=== PATIENT | female | born 1985 | race Caucasian/White ===

== ENCOUNTER 2018-03-05 06:00 | Inpatient (IN) | payer MEDICAID ==
--- NOTE | 2018-03-04 15:27 | GHP ---
[f rep st] PREOP HISTORY AND PHYSICAL DATE OF ADMISSION: 03/05/2018 ADMISSION DIAGNOSIS: Intrauterine at 37 weeks' gestation with intrauterine growth restrict ion and oligohydramnios. INDICATION: Patient is a 32-year-old, 2, para 1-0-0-1, who will be 37 weeks' gestation. Her estimated date of confinement is 03/26/2018, dated by a last menstrual period of 06/20/2017, consist ent with a first trimester ultrasound. Patient has initiated care at [facility] the first trimester. She had a growth ultrasound at 36 weeks for size less than 36 weeks. Estimate d weight at that time was 8th percentile with an amniotic fluid index of 7.1, and elevated SD r atio of Dopplers of greater than 98th percentile. Patient's anatomy ultrasound, the estimated weight had been 75th percentile with obviously normal amniotic fluid. The patient presented for a no nstress test today, which was reactive, with positive accelerations. However, there was a small vari able deceleration, so a bedside ultrasound was performed by sd, which showed an amniotic fluid index of 5. Management options were reviewed with the patient, but because of the oligohydramnios, intraut erine growth restriction and elevated Dopplers, recommendation was made for induction of labor. A Fo jake bulb was placed in the evening of 03/04, and patient will be brought in on the morning of 03/05 f or induction of labor with Pitocin. MEDICAL HISTORY: Significant for factor V Leiden heterozygous. The patient does not have any person al history of clotting issues. The patient also has a history of pyelonephritis. MEDICATIONS: vitamins and baby aspirin. SURGICAL HISTORY: [place] teeth. ALLERGIES: No known drug allergies. SOCIAL HISTORY: Patient is . 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 She denies tobacco, alcohol, or drug u se. FAMILY MEDICAL HISTORY: Significant for a family member with factor V Leiden. 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 Periods every 28 days, lasting 2 days. She is a 2, para 1-0-0-1. First , she had a spontaneous vaginal delivery in 05/2015 of a 7-pound 11-ounce fe male infant at 39-5/7 weeks. She was induced for mild preeclampsia. Delivery was complicated by ret ained placenta, requiring manual extraction of the placenta. Nuchal cord x2 noted with meconium-stai jose fluid. 's were 1, 5 and 9. Current has been uncomplicated until the 36-week diag nosis of intrauterine growth restriction. The patient denies any history of any abnormal Pap smears or sexually transmitted diseases. REVIEW OF SYSTEMS: Ten-point review of systems is negative. She has positive movement. Denie s any headache or changes in vision, nausea, vomiting, fevers, or chills. She denies any loss of flu id or vaginal bleeding. She states there is good movement. She denies any contractions. PHYSICAL EXAMINATION: VITAL SIGNS: Stable. GENERAL APPEARANCE: Alert and oriented x3. NECK: Mob ile and supple. HEART: Rate is regular/regular. LUNGS: Clear to auscultation bilaterally. ABDOME N: Gravid, nondistended, nontender. EXTREMITIES: Reveal no calf tenderness or edema. PELVIC: Cer vical exam, she is 1 cm dilated, 50% effaced, and -2 station. is in the vertex presentation. heart tracing was category 1. PSYCH: Appropriate affect. NEUROMUSCULAR: Grossly intact. LABS: Patient's blood type is O positive. Antibody screen negative. Rubella immune. GBS positive. HBsAg negative. Fifty gram glucose was 134. Patient denied genetic testing. ASSESSMENT AND PLAN: A 32-year-old, 2, para 1-0-0-1, who will be 37 weeks' gestation with ol igohydramnios, intrauterine growth restriction, and elevated Dopplers. Patient has a Thapa placed an d will be started on Pitocin in the morning. /[id number]/MODL
[2018-03-05] MEDS ORDERED: AMMONIA AROMATIC 1 EACH AMP IH ONE (08:13)
[2018-03-05] MEDS ORDERED: OLIVE OIL 118 ML BTL ONE (08:13)
[2018-03-05] MEDS ORDERED: LIDOCAINE 1% 300 MG/30 ML SDV ONE (08:13)
[2018-03-05] MEDS ORDERED: TERBUTALINE SULFATE 1 MG/ML VIAL ONE (08:13)
[2018-03-05] MEDS ORDERED: OXYTOCIN 10 UNIT/ML VIAL ONE (08:15)
[2018-03-05] MEDS ORDERED: MISOPROSTOL 200 MCG TAB ONE (08:15)
[2018-03-05] MEDS ORDERED: AMPICILLIN SODIUM 2 GM in NS 100 ML IV ONE (09:24)
[2018-03-05] MEDS ORDERED: LR 500 ML IV PRN (09:32)
[2018-03-05] MEDS ORDERED: IBUPROFEN 600 MG TAB PO PRN (09:33)
[2018-03-05] MEDS ORDERED: OXYTOCIN/RINGERS LACTATE 1,000 ML IV PRN (09:33)
[2018-03-05] MEDS ORDERED: MISOPROSTOL 200 MCG TAB PR PRN (09:33)
[2018-03-05] MEDS ORDERED: EPSOM SALT 454 GM TP PRN (09:33)
[2018-03-05] MEDS ORDERED: LR 1,000 ML IV PRN (09:33)
[2018-03-05] MEDS ORDERED: LIDOCAINE 1% 300 MG/30 ML SDV SC PRN (09:33)
[2018-03-05] MEDS ORDERED: TERBUTALINE SULFATE 1 MG/ML VIAL IV PRN (09:33)
[2018-03-05] MEDS ORDERED: OLIVE OIL 118 ML BTL MISC PRN (09:33)
[2018-03-05] MEDS ORDERED: OXYTOCIN/RINGERS LACTATE 500 ML IV SCH (10:00)
[2018-03-05] MEDS ORDERED: OXYTOCIN 30 UNIT in LR 500 ML IV SCH (10:30)
[2018-03-05 11:00] LABS: PLATELET COUNT 184 10^3/uL (150-400)
--- NOTE | 2018-03-05 14:04 | OBPROG ---
Labor Progress Note Assessment/Plan: Assessment: Plan: Subjective/Intrapartum Course: 03/05/18 13:59 patient starting to feel very mild contractions. AROM - scant amount of clear fluid. status reassuring. will continue close observation. pitocin is at 10. 03/05/18 14:01 Objective: 03/05/18 07:30 Patient ABO/Rh O POSITIVE 03/05/18 07:30 - SVE Dilation (cm): 3 Effacement (%): 50 Station: -2 Membranes: SROM Amniotic Fluid Color: Clear - Contraction Pattern Assessment Current Contraction Pattern: Regular - FHR Assessment Arriaza FHR Pattern Variability: Moderate FHR Category: 1 - Procedures Non-surgical Procedures: Amniotomy - AP Antepartum Course: 03/05/18 14:01 initiated care at [facility] in first trimester. efw at 2o weeks was 75%. size less than dates at 36 weeks. EFW 8% with s/d ratio of umbilical artery 90% . marylu 7. started two times a week nst. nst yesterday had small variable. marylu 5. discussed management options. odonnell bulb placed. brought in for induction of labor. Oxytocin Orders Assessment - Pre-Induction/Augmentation Assessment Gestational Age: 37 week(s) and 0 day(s) ICD10 Worksheet Patient Problems: Problems Problem Status Onset Preeclampsia Acute Retained placenta Acute (spontaneous vaginal delivery) Acute
[2018-03-05] MEDS: AMPICILLIN SODIUM 1 GM in NS 100 ML IV SCH ×2 (15:00→19:00)
[2018-03-05] MEDS ORDERED: ACETAMINOPHEN 500 MG TAB PO PRN (15:33)
[2018-03-05] MEDS ORDERED: NALOXONE HCL 0.4 MG/ML INJ IVP PRN (16:48)
[2018-03-05] MEDS ORDERED: PHENYLEPHRINE HCL 100 MCG/ML SYR IVP PRN (16:48)
[2018-03-05] MEDS ORDERED: ONDANSETRON 4 MG/2 ML VIAL IVP PRN (16:48)
[2018-03-05] MEDS ORDERED: fentaNYL 100 MCG/2 ML INJ ONE (16:57)
[2018-03-05] MEDS ORDERED: BUPIVACAINE 0.25% 30 ML SDV ONE (16:57)
[2018-03-05] MEDS ORDERED: fentaNYL 2MCG/ML/BUP 0.1% RTU 100 ML EP SCH (17:00)
[2018-03-05] MEDS ORDERED: fentaNYL 200 MCG, BUPIVACAINE 0.5% 20 ML in NS 100 ML EP SCH (17:00)
[2018-03-05] MEDS ORDERED: LR 500 ML IV SCH (17:00)
--- NOTE | 2018-03-05 17:44 | PREANESOB ---
Obstetric Pre-Anesthesia Info - General Info Proposed Procedure: labor : 2 Para: 1 RAJIV: 03/26/18 Gestational Age: 37 week(s) and 0 day(s) - Info Status: Full Term Monitors: External FHR Pattern: Reassuring - Labor Status Cervical Dilation per last OB SVE: 3 Station per last OB SVE: -2 Amniotic Fluid Color: Clear Pitocin: In Use PIH: No Magnesium Sulfate in Use: No Indications for Labor Analgesia: Augmentation of Labor Labor Epidural: Proposed Anesthesia ROS: had previous labor epidural without problems, no other surgical history, negative fam hx of anes problems, nkda, meds: PNV and baby ASA, neg ROS except for Factor V leiden, uneventful , see other software for vital signs Allergies/Adverse Reactions: Allergy/AdvReac Type Severity Reaction Status Date / Time No Allergies [NKDA] Allergy Mild Verified 03/05/18 07:22 wheat Allergy Verified 03/05/18 07:22 Home Medications: Medication Instructions Recorded Vit27&Calcium/Iron/FA 1 each PO DAILY 06/24/15 [ Rx 1 Tablet (RX)] Visit Medications: Generic Name Dose Route Start Last Admin Trade Name Freq PRN Reason Stop Dose Admin Acetaminophen 1,000 mg 03/05/18 15:33 03/05/18 15:50 Tylenol PO 09/01/18 15:32 1,000 mg Q6HRS PRN Administration Pain, Mild/Fever, Can Take PO Diphenhydramine HCl 25 - 50 mg 03/05/18 16:48 Benadryl Injection IVP 09/01/18 16:47 Q6HRS PRN Itching Ephedrine Sulfate 10 mg 03/05/18 16:48 Ephedrine Sulfate IV 09/01/18 16:47 .Q2M PRN Hypotension Ampicillin Sodium 1 gm/ Sodium 100 mls @ 200 mls/hr 03/05/18 13:30 03/05/18 15:00 Chloride IV 04/04/18 13:29 100 mls Q4H CHEVY Administration Protocol Lactated Ringer's 500 mls @ 500 mls/hr 03/05/18 09:32 Lr IV 03/06/18 09:32 PRN PRN Maternal Hypotension Lactated Ringer's 1,000 mls @ 0 mls/hr 03/05/18 09:33 03/05/18 10:30 Lr IV 03/06/18 09:32 1,000 mls PRN PRN Administration SEE PROTOCOL CONDITIONS Protocol Per Protocol Oxytocin/Lactated Ringer's 1,000 mls @ 125 mls/hr 03/05/18 09:33 Pitocin 20 Units/Lr (Premix) IV PRN PRN Post bleeding Oxytocin 30 unit/ Lactated 503 mls @ 0 mls/hr 03/05/18 10:30 03/05/18 10:30 Ringer's IV 09/01/18 09:59 503 mls CONT CHEVY Administration Protocol Per Protocol Lactated Ringer's 500 mls @ 0 mls/hr 03/05/18 17:00 Lr IV 09/01/18 16:59 CONT CHEVY As Directed Fentanyl 200 mcg/ Bupivacaine 100 mls @ 0 mls/hr 03/05/18 17:00 HCl 20 ml/ Sodium Chloride EP 03/15/18 16:59 CONT CHEVY Protocol As Directed Ibuprofen 600 mg 03/05/18 09:33 Motrin PO ONCE PRN post , pain Lidocaine HCl 300 mg 03/05/18 09:33 Lidocaine Hcl 1% SC 09/01/18 09:32 ONCE PRN episiotomy Magnesium Sulfate 454 gm 03/05/18 09:33 Epsom Salt TP 09/01/18 09:32 Q1H PRN perineal discomfort Misoprostol 800 - 1,000 mcg 03/05/18 09:33 Cytotec OH ONCE PRN Vaginal Atony/Bleeding Naloxone HCl 0.4 mg 03/05/18 16:48 Narcan IVP 09/01/18 16:47 PRN PRN Respiratory depression Jasper Oil 118 ml 03/05/18 09:33 Sweet Oil MISC 09/01/18 09:32 ONCE PRN perineal massage Ondansetron HCl 4 mg 03/05/18 16:48 Zofran IVP 03/06/18 16:47 Q4HRS PRN Nausea/Vomiting, Can't Take PO Phenylephrine HCl 100 mcg 03/05/18 16:48 Neosynephrine IVP 09/01/18 16:47 .Q2M PRN Hypotension Terbutaline Sulfate 0.25 mg 03/05/18 09:33 Brethine IV 09/01/18 09:32 ONCE PRN Tachysystole Discontinued Medications Generic Name Dose Route Start Last Admin Trade Name Freq PRN Reason Stop Dose Admin Ammonia (Aromatic Spirit) Confirm 03/05/18 08:13 Ammonia Aromatic Administered 03/05/18 08:14 Dose 1 each IH .STK-MED ONE Bupivacaine HCl Confirm 03/05/18 16:57 Sensorcaine 0.25% Sdv Administered 03/05/18 16:58 Dose 30 ml .ROUTE .STK-MED ONE Fentanyl Confirm 03/05/18 16:57 Sublimaze Administered 03/05/18 16:58 Dose 100 mcg .ROUTE .STK-MED ONE Ampicillin Sodium 2 gm/ Sodium 110 mls @ 220 mls/hr 03/05/18 09:24 03/05/18 10:30 Chloride IV 03/05/18 09:53 110 mls ONCE ONE Administration Protocol Oxytocin/Lactated Ringer's 500 mls @ 0 mls/hr 03/05/18 10:00 Pitocin 30 Units/Lr (Premix) IV 09/01/18 09:59 CONT CHEVY Protocol Per Protocol Lidocaine HCl Confirm 03/05/18 08:13 Lidocaine Hcl 1% Administered 03/05/18 08:14 Dose 300 mg .ROUTE .STK-MED ONE Misoprostol Confirm 03/05/18 08:15 Cytotec Administered 03/05/18 08:16 Dose 1,000 mcg .ROUTE .STK-MED ONE Jasper Oil Confirm 03/05/18 08:13 Sweet Oil Administered 03/05/18 08:14 Dose 118 ml .ROUTE .STK-MED ONE Oxytocin Confirm 03/05/18 08:15 Pitocin Administered 03/05/18 08:16 Dose 40 unit .ROUTE .STK-MED ONE Terbutaline Sulfate Confirm 03/05/18 08:13 Brethine Administered 03/05/18 08:14 Dose 1 mg .ROUTE .STK-MED ONE - Anesthesia History Response to Local Anesthetics: Normal Anesthesia & Operative History: No Prior Problems Family Anesthesia History: Negative - Social History Substance Use/Abuse: Denies - Vital Signs Height/Weight (Nursing): Height 167.64 cm Weight 63.503 kg - Focused Exam Neck exam: FROM Mallampati Score: Class 2 Mouth exam: normal dental/mouth exam Pulmonary: no respiratory distress Cardiovascular: regular rate and rhythym Labs: 03/05/18 07:30 Patient ABO/Rh O POSITIVE 03/05/18 07:30 - Plan Anesthetic Plan: godwin Consent Signed and on Chart: Yes Patient/Guardian Understands and Agrees to Plan: Yes Urgent/Emergent Case: Genevieve montes completed preop but documented later for safe timely pt care
--- NOTE | 2018-03-05 17:47 | POSTANESTH ---
Post Anesthetic Evaluation Cardiovascular Status: Normal, Stable Respiratory Status: Normal, Stable Level of Consciousness/Mental Status: Can Participate in Eval Pain Control: Adequate, Prn Tx Ordered Nausea/Vomiting Control: Adequate, Prn Tx Ordered Complications Possibly Related to Anesthesia: None Noted (uneventful placement of labor epidural, good pain relief, motor intact, stable vs)
--- NOTE | 2018-03-05 20:19 | OBPROG ---
Labor Progress Note Assessment/Plan: Assessment: Plan: Subjective/Intrapartum Course: 03/05/18 13:59 patient starting to feel very mild contractions. AROM - scant amount of clear fluid. status reassuring. will continue close observation. pitocin is at 10. 03/05/18 14:01 03/05/18 20:14 patient received epidural which provided adequate pain relief. she was examined after epidural and was 4 cm. IUPC placed without difficulty. patient was repositioned multiple times and into hands and knees. was having variable and late decelerations so she was taken out of hands and knees and a scalp electrode was placed. she continued to have variable decels so the pitocin was turned off. terbutaline was then given. decels stopped. sve 6-7 cm/90/-1. long discussion with patient and father of baby about next steps. patient asked multiple questions about options. discussed section. status reassuring discussed restarting pitocin with close surveillance. pitocin was restarted. status reassuring. will continue close surveillance. Objective: 03/05/18 07:30 Patient ABO/Rh O POSITIVE 03/05/18 07:30 Temp Pulse Resp BP Pulse Ox 74 115/55 L 03/05/18 19:06 03/05/18 19:06 - SVE Dilation (cm): 6 Effacement (%): 90 Station: -1 Membranes: AROM Amniotic Fluid Color: Clear - Contraction Pattern Assessment Current Contraction Pattern: Regular - Procedures Non-surgical Procedures: Amniotomy - AP Antepartum Course: 03/05/18 14:01 initiated care at [facility] in first trimester. efw at 2o weeks was 75%. size less than dates at 36 weeks. EFW 8% with s/d ratio of umbilical artery 90% . marylu 7. started two times a week nst. nst yesterday had small variable. marylu 5. discussed management options. odonnell bulb placed. brought in for induction of labor. Oxytocin Orders Assessment - Pre-Induction/Augmentation Assessment Gestational Age: 37 week(s) and 0 day(s) ICD10 Worksheet Patient Problems: Problems Problem Status Onset Preeclampsia Acute Retained placenta Acute (spontaneous vaginal delivery) Acute
[2018-03-05] MEDS ORDERED: SIMETHICONE 80 MG TAB CHEW PO PRN (22:12)
[2018-03-05] MEDS ORDERED: HYDROCORTISONE 0.5% CREAM TP PRN (22:12)
--- NOTE | 2018-03-05 22:19 | OBDEL ---
Info Type: Vaginal Presentation at Delivery: Vertex L&D Analgesia/Anesthesia Type: Epidural GBS+: Yes Antibiotic Used for + GBS: Ampicillin Intrapartum Medications: Generic Name Dose Route Start Last Admin Trade Name Sofy PRN Reason Stop Dose Admin Acetaminophen 1,000 mg 03/05/18 15:33 03/05/18 15:50 Tylenol PO 09/01/18 15:32 1,000 mg Q6HRS PRN Administration Pain, Mild/Fever, Can Take PO Ampicillin Sodium 1 gm/ Sodium 100 mls @ 200 mls/hr 03/05/18 13:30 03/05/18 19:00 Chloride IV 04/04/18 13:29 100 mls Q4H CHEVY Administration Protocol Lactated Ringer's 1,000 mls @ 0 mls/hr 03/05/18 09:33 03/05/18 10:30 Lr IV 03/06/18 09:32 1,000 mls PRN PRN Administration SEE PROTOCOL CONDITIONS Protocol Per Protocol Oxytocin/Lactated Ringer's 1,000 mls @ 125 mls/hr 03/05/18 09:33 03/05/18 22: 16 Pitocin 20 Units/Lr (Premix) IV 1,000 mls PRN PRN Administration Post bleeding Oxytocin 30 unit/ Lactated 503 mls @ 0 mls/hr 03/05/18 10:30 03/05/18 10:30 Ringer's IV 09/01/18 09:59 503 mls CONT CHEVY Administration Protocol Per Protocol Misoprostol 800 - 1,000 mcg 03/05/18 09:33 03/05/18 22:15 Cytotec NE 1,000 mcg ONCE PRN Administration Vaginal Atony/Bleeding Terbutaline Sulfate 0.25 mg 03/05/18 09:33 03/05/18 19:06 Brethine IV 09/01/18 09:32 0.25 mg ONCE PRN Administration Tachysystole Discontinued Medications Generic Name Dose Route Start Last Admin Trade Name Sofy PRN Reason Stop Dose Admin Ampicillin Sodium 2 gm/ Sodium 110 mls @ 220 mls/hr 03/05/18 09:24 03/05/18 10:30 Chloride IV 03/05/18 09:53 110 mls ONCE ONE Administration Protocol - Hospital Course Intrapartum: 03/05/18 13:59 patient starting to feel very mild contractions. AROM - scant amount of clear fluid. status reassuring. will continue close observation. pitocin is at 10. 03/05/18 14:01 03/05/18 20:14 patient received epidural which provided adequate pain relief. she was examined after epidural and was 4 cm. IUPC placed without difficulty. patient was repositioned multiple times and into hands and knees. was having variable and late decelerations so she was taken out of hands and knees and a scalp electrode was placed. she continued to have variable decels so the pitocin was turned off. terbutaline was then given. decels stopped. sve 6-7 cm/90/-1. long discussion with patient and father of baby about next steps. patient asked multiple questions about options. discussed section. status reassuring discussed restarting pitocin with close surveillance. pitocin was restarted. status reassuring. will continue close surveillance. Indications for Delivery: Oligohydramnios, Growth Restriction w/Abnormal Doppler studies Vaginal Delivery - Delivery Provider Delivery Physician/CNM: Alena Malone - Labor and Delivery Onset of Contractions Date: 03/05/18 Onset of Contractions Time: 12:00 Onset of Contractions Type: Induced Rupture of Membranes Date: 03/05/18 Rupture of Membranes Time: 13:42 Rupture of Membranes Type: Artificial Amniotic Fluid Color: Clear Dilation Complete Date: 03/05/18 Dilation Complete Time: 20:41 Placenta Delivery Date: 03/05/18 Placenta Delivery Time: 21:07 Total Hours of Labor: 9 Non-surgical Procedures: Amniotomy Repair: 3-0 Vaginal Sponge Count Correct: Yes Vaginal Needle Count Correct: Yes EBL: 1200 Delivery Events: Post Hemorrhage, Retained Placenta (bedside manual extraction of placenta. bedside currettage. cytotec and second bag of pitocin.) - Medications Labor Augmentation/Induction Methods Used: Pitocin Labor Augmentation/Induction Indication: IUGR, Other (Specify) (oligo with elevated dopplers) [place] Data RAJIV: 03/26/18 Gestational Age: 37 week(s) and 0 day(s) Arriaza Delivery Date: 03/05/18 Delivery Time: 20:50 Sex of : Female Score (1 Min): 8 Score (5 Min): 9 ICD10 Worksheet Patient Problems: Problems Problem Status Onset Preeclampsia Acute Retained placenta Acute (spontaneous vaginal delivery) Acute
--- NOTE | 2018-03-05 22:45 | OBPP ---
Progress Note Assessment/Plan: Assessment: Plan: Subjective/ Course: 03/05/18 22:24 patient had a spontaneous vaginal delivery over and intact perineum. placenta did not deliver spontaneously so manual extraction of placenta was done. placenta came out in multiple pieces. tv us done. no definitive rpoc noted but difficulty to tell. uterine sweep done. areas of utuers it was difficulty to tell if shredded myometrium vs retained placenta. discussed with patient and fob possibility of rpoc and bleeding and potential need for d and c. will just observe closely. uterus contracted down with pitocin. Objective: 03/05/18 07:30 Patient ABO/Rh O POSITIVE 03/05/18 07:30 Temp Pulse Resp BP Pulse Ox 74 115/55 L 03/05/18 19:06 03/05/18 19:06
[2018-03-06] MEDS: AMPICILLIN SODIUM 1 GM in NS 100 ML IV SCH ×2 (06:21→06:51)
[2018-03-06] MEDS: ACETAMINOPHEN 325 MG TAB PO SCH ×3 (06:21→22:04)
[2018-03-06] MEDS: IBUPROFEN 600 MG TAB PO SCH ×4 (06:50→23:31)
[2018-03-06] MEDS: DOCUSATE SODIUM 100 MG CAP PO PRN ×2 (07:49→22:04)
[2018-03-06] MEDS: HYDROCODONE/APAP 5/325 TAB PO PRN ×2 (07:49→12:27)
--- NOTE | 2018-03-06 12:07 | POSTANESTH ---
Post Anesthetic Evaluation Cardiovascular Status: Normal, Stable Respiratory Status: Normal, Stable Level of Consciousness/Mental Status: Can Participate in Eval Pain Control: Adequate, Prn Tx Ordered Nausea/Vomiting Control: Adequate, Prn Tx Ordered Complications Possibly Related to Anesthesia: None Noted (uneventful resolution of epidural)
--- NOTE | 2018-03-06 16:23 | OBPP ---
Progress Note Assessment/Plan: Assessment: PPD1 s/p , complicated by retained placenta requiring manual removal. Bleeding minimal/appropriate - no meds, continue to monitor. Routine cares - likely home tomorrow. DOLLY Subjective/ Course: Dona is doing great this AM - uneventful night, really no extra bleeding, normal lochia. Pain well controlled, BF going well. Objective: 03/06/18 06:10 Patient ABO/Rh O POSITIVE 03/05/18 07:30 Temp Pulse Resp BP Pulse Ox 36.4 C 59 L 14 116/78 03/06/18 12:50 03/06/18 12:50 03/06/18 12:50 03/06/18 12:50 Uterine Position/Fundal Height: At Umbilicus Uterine Tone: Firm
[2018-03-07] MEDS: ACETAMINOPHEN 325 MG TAB PO SCH (04:35)
[2018-03-07] MEDS: IBUPROFEN 600 MG TAB PO SCH ×2 (04:51→11:52)
[2018-03-07 09:44] VITALS: BP 122/76
--- NOTE | 2018-03-07 10:50 | OBPP ---
Progress Note Assessment/Plan: Assessment: s/p PPD # 2 - pt is stable Plan: Plan for d/c home today Instructions reviewed with pt Rx given for Motrin and Colace Cont PNV Pelvic rest RTC in 4 and 6 weeks for pp visit. 03/07/18 10:47 Subjective/ Course: 03/05/18 22:24 patient had a spontaneous vaginal delivery over and intact perineum. placenta did not deliver spontaneously so manual extraction of placenta was done. placenta came out in multiple pieces. tv us done. no definitive rpoc noted but difficulty to tell. uterine sweep done. areas of utuers it was difficulty to tell if shredded myometrium vs retained placenta. discussed with patient and fob possibility of rpoc and bleeding and potential need for d and c. will just observe closely. uterus contracted down with pitocin. 03/07/18 10:48 Pt seen and examined. Doing well, no complaints. Minimal cramping, controlled with Motrin. Pt is OOB, madi regular diet, voiding without difficulty, passing flatus and BM this am. Mod lochia. BF without difficulty. Ready to go home today. Objective: 03/06/18 06:10 Patient ABO/Rh O POSITIVE 03/05/18 07:30 Temp Pulse Resp BP Pulse Ox 36.9 C 69 16 122/76 H 97 03/07/18 09:15 03/07/18 09:15 03/07/18 09:15 03/07/18 09:15 03/06/18 20:15 Uterine Position/Fundal Height: Umbilicus -2 Uterine Tone: Firm Physical Exam - Physical Exam General Appearance: alert, no apparent distress, mild distress Respiratory: lungs clear, normal breath sounds Cardiac/Chest: regular rate, rhythm Abdomen: normal bowel sounds, non-tender, soft, flatus (+) Extremities: non-tender, normal inspection Skin: normal color, warm/dry Neuro/Psych: alert, normal mood/affect, oriented x 3
--- NOTE | 2018-03-07 10:51 | OBGCSDC ---
General Delivery Information - General Info : 2 Para: 2 Abortions: 0 Type: Vaginal L&D Analgesia/Anesthesia Type: Epidural Admission Date: 03/05/18 Labs: Patient ABO/Rh O POSITIVE 03/05/18 07:30 Hct 36.1 % (38.0-47.0) L 03/06/18 06:10 - Hospital Course Antepartum: 03/05/18 14:01 initiated care at [facility] in first trimester. efw at 2o weeks was 75%. size less than dates at 36 weeks. EFW 8% with s/d ratio of umbilical artery 90% . marylu 7. started two times a week nst. nst yesterday had small variable. marylu 5. discussed management options. odonnell bulb placed. brought in for induction of labor. Intrapartum: 03/05/18 13:59 patient starting to feel very mild contractions. AROM - scant amount of clear fluid. status reassuring. will continue close observation. pitocin is at 10. 03/05/18 14:01 03/05/18 20:14 patient received epidural which provided adequate pain relief. she was examined after epidural and was 4 cm. IUPC placed without difficulty. patient was repositioned multiple times and into hands and knees. was having variable and late decelerations so she was taken out of hands and knees and a scalp electrode was placed. she continued to have variable decels so the pitocin was turned off. terbutaline was then given. decels stopped. sve 6-7 cm/90/-1. long discussion with patient and father of baby about next steps. patient asked multiple questions about options. discussed section. status reassuring discussed restarting pitocin with close surveillance. pitocin was restarted. status reassuring. will continue close surveillance. : 03/05/18 22:24 patient had a spontaneous vaginal delivery over and intact perineum. placenta did not deliver spontaneously so manual extraction of placenta was done. placenta came out in multiple pieces. tv us done. no definitive rpoc noted but difficulty to tell. uterine sweep done. areas of utuers it was difficulty to tell if shredded myometrium vs retained placenta. discussed with patient and fob possibility of rpoc and bleeding and potential need for d and c. will just observe closely. uterus contracted down with pitocin. 03/07/18 10:48 Pt seen and examined. Doing well, no complaints. Minimal cramping, controlled with Motrin. Pt is OOB, madi regular diet, voiding without difficulty, passing flatus and BM this am. Mod lochia. BF without difficulty. Ready to go home today. Vaginal - Delivery Provider Delivery Physician/CNM: Alena Malone - Diagnosis Labor: Induced Rupture of Membranes Type: Artificial Amniotic Fluid Color: Clear Repair: 3-0 Delivery Events: Post Hemorrhage, Retained Placenta (bedside manual extraction of placenta. bedside currettage. cytotec and second bag of pitocin.) - Procedures Non-surgical Procedures: Amniotomy - Delivery Non-surgical Procedures: Amniotomy EBL: 1200 Data RAJIV: 03/26/18 Gestational Age: 37 week(s) and 2 day(s) Arriaza Delivery Date: 03/05/18 Delivery Time: 20:50 Sex of : Female [place] Weight (gm): 2416 kg Score (1 Min): 8 Score (5 Min): 9 Discharge Information - Discharge Information Condition: Good Instruction/Follow Up: Four Weeks, Six Weeks
== END 2018-03-07 11:30 | disposition home or self-care (01) | DRG 541 ==
LOC: FLD 06:32 → FOB 03-06 14:01
PROVIDERS: ADMIT Obstetrics & Gynecology; ATTEND Obstetrics & Gynecology
PROC: 10H07YZ Insertion of Other Device into Products of Conception, Via Natural or Artificial Opening (ICD-10-PCS; principal; 2018-03-05)
PROC: 10E0XZZ Delivery of Products of Conception, External Approach (ICD-10-PCS; principal; 2018-03-05)
PROC: 10D17Z9 Manual Extraction of Products of Conception, Retained, Via Natural or Artificial Opening (ICD-10-PCS; principal; 2018-03-05)
PROC: 4A1H7CZ Monitoring of Products of Conception, Cardiac Rate, Via Natural or Artificial Opening (ICD-10-PCS; 2018-03-05)
PROC: 10907ZC Drainage of Amniotic Fluid, Therapeutic from Products of Conception, Via Natural or Artificial Opening (ICD-10-PCS; 2018-03-05)
DX: O72.0 Third-stage hemorrhage (principal); O99.824 Streptococcus B carrier state complicating childbirth; O41.03X0 Oligohydramnios, third trimester, not applicable or unspecified; Z3A.37 37 weeks gestation of pregnancy; Z37.0 Single live birth
CPT/HCPCS: J0290; J2590; J3010; J3105